=== PATIENT | male | born 1975 | race Caucasian/White ===

== ENCOUNTER 2017-05-10 12:06 | Emergency (ER) | payer OTHER ==
[~2017-05-10] VITALS: Ht 182.9 cm; Wt 110.5 kg
[2017-05-10 12:09] VITALS: BP 129/83; PULSE 8; PULSE 87; RESP 16; O2SAT 95
--- NOTE | 2017-05-10 12:18 | ED.REPORT ---
HPI-Trauma Minor / Fall Date of Service May 10, 2017 ED Provider: Claire Fuentes MD The pt is a 42 y/o male presenting to the ED due to a head laceration. He describes hitting his head on the corner of a cabinet while standing up. There was no LOC but the pt does report feeling nauseated. His friend reports the pt being very disorientated and slurring his speech directly after hitting his head. Nursing Notes Stated Complaint: HEAD LACERATION Chief Complaint: Head laceration Nursing Notes Reviewed: Yes Allergies: Coded Allergies: No Known Allergies (Unverified , 05/10/17) No Active Prescriptions or Reported Meds General Time Seen by MD: 12:15 Chief Complaint Other (Head laceration) Hx Obtained From: Patient Arrived By: Walk-in Onset Occurred: Just prior to arrival Symptom Duration: Since onset Recent Healthcare: No recent doctor visit, No recent hospitalization Similar Sx Previous: No Risk Factors Risk Notes: Does not meet inclusion criteria for head CT Past Medical History Past Medical History None reported Past Surgical History None reported Smoking History Unknown if Ever Smoker Social History Other Social History: Good social support, Lives with children Ambulatory Status Independent Review of Systems Head laceration; Neurologic: Denies: Change LOC Complete sys rev & neg: except as marked. GI: Reports: Nausea Physical Exam Initial Vital Signs Vital Signs (First) Date Time Temp Pulse Resp B/P Pulse Ox O2 Delivery O2 Flow Rate FiO2 05/10/17 12:09 36.8 87 16 129/83 95 Room Air Initial VS: Reviewed ENT: Mucous membranes moist, Conjunctiva normal, No scleral icterus Respiratory: No respiratory distress Extremities: Vascular intact, Neuro intact, No swelling Neurologic: Alert, Oriented, Nonfocal Psychiatric: Mood/affect normal, Behavior normal, Normal thought content General/Constitutional: Awake, Alert, No acute distress Neck: Atraumatic, Supple, Full range of motion Head / Eyes: Normocephalic 1 cm partial thickness laceration to top of head; No increased pain w/ skull manipulation; Procedures Laceration Management Time: 12:40 Procedure Performed by: ED physician Consent / Setup / Site Prep: Informed consent provided, Consent from patient , Time-out performed, Hand hygiene observed Location of Wound: Top of head Wound Length: 1 cm Local Anesthesia: Bupivacaine 0.5% Wound Preparation: Normal saline Debridement: None Irrigation: 50 cc Repair Skin: [place] Post-Procedure / Complications: No complications, Condition improved, Tolerated procedure well, Patient stable Re-Eval/Medical Decision Source of Hx: Old records Re-Evaluation/Progress : Time of Eval: 12:40 Re-Evaluation/Progress Note: Performed laceration repair. F/U instructions and RTER warnings given. All questions addressed. Counseled Regarding: Diagnosis, Need for follow-up, When/why to return to ED Discharge & Departure Impression: Primary Impression: Concussion Encounter type: initial encounter Loss of consciousness presence/duration: without LOC Qualified Code: S06.0X0A - Concussion without loss of consciousness, initial encounter Additional Impression: Laceration of head Encounter type: initial encounter Location of open wound of head: unspecified part of head Foreign body presence: without foreign body Qualified Code: S01.91XA - Laceration without foreign body of unspecified part of head, initial encounter Disposition: Home Discharge Condition All VS Reviewed: Yes Condition: Stable Patient Instructions: Concussion (ED), Laceration (ED) Additional Instructions: Thank for you entrusting us with your care today. Please have the staple removed in about a week. You may take Ibuprofen and Tylenol as needed for the pain. You can also expect to feel nauseated for the next couple of days and can take the Zofran as needed. Please return to the emergency department if you experience any new or worsening symptoms. I hope you feel better soon. Referrals: Alicia Rayo Scribe Attestation Portions of this note were transcribed by Lonny Newman. I, Dr. Fuentes personally performed the history, physical exam and medical decision-making; I reviewed and confirmed the accuracy of the information in the transcribed note. copies to: Alicia Rayo Shawna L MD May 10, 2017 12:18 Lonny Newman May 10, 2017 12:33 Claire Fuentes MD May 10, 2017 12:18 Lonny Newman May 10, 2017 12:33
[2017-05-10] MEDS ORDERED: Ondansetron 8 mg ODT Tablet PO ONE (12:35)
[2017-05-10] MEDS ORDERED: ONDA4TAB6 PO (13:20)
[2017-05-10 13:38] VITALS: BP 110/75; PULSE 77; RESP 16; O2SAT 97
== END 2017-05-10 13:39 | disposition home or self-care (01) ==
LOC: SED 12:06
DX: S06.0X0A Concussion without loss of consciousness, initial encounter (principal); S01.01XA Laceration without foreign body of scalp, initial encounter; W22.09XA Striking against other stationary object, initial encounter; Y93.89 Activity, other specified; Y92.69 Other specified industrial and construction area as the place of occurrence of the external cause; Y99.0 Civilian activity done for income or pay